=== PATIENT | female | born 1995 | race Caucasian/White ===

== ENCOUNTER 2023-06-10 05:16 | Outpatient (CLI) | payer OTHER, SELFPAY | END 2023-06-10 05:17 | disposition home or self-care (01) | LOC: AMB 06-12 20:13 | PROVIDERS: PCP Family Medicine; Visit Provider Internal Medicine | DX: R55 Syncope and collapse (principal); R19.7 Diarrhea, unspecified; S09.90XA Unspecified injury of head, initial encounter; W18.30XA Fall on same level, unspecified, initial encounter; Y92.009 Unspecified place in unspecified non-institutional (private) residence as the place of occurrence of the external cause | CPT/HCPCS: A0425; A0427 ==

== ENCOUNTER 2023-06-10 05:45 | Emergency (ER) | payer OTHER, MEDICAID, SELFPAY ==
[2023-06-10 05:51] VITALS: BP 115/66; PULSE 97; RESP 16; TEMP 36.6; O2SAT 99; BMI 38.0
--- NOTE | 2023-06-10 05:56 | CRLHL7_ITS ---
For Patients: As a result of the Cures Act, medical imaging exams and procedure reports are released immediately into your electronic medical record. You may view this report before your referring provider. If you have questions, please contact your health care provider. INDICATION: Injury COMPARISON: None TECHNIQUE: CT examination of the cervical spine is performed without contrast using spiral technique. Thin axial, sagittal and coronal reconstructions were made. Please note that all CT scans at this facility use dose modulation, iterative reconstruction, and/or weight-based dosing when appropriate to reduce radiation dose to as low as reasonably achievable. FINDINGS: : There is straightening which is usually due to muscle spasm, positioning or immobilization device. No significant arthritic changes. No acute fracture, dislocation or destructive process. The history indicates right facial and orbital region trauma. Please be aware that the orbits and the facial region were not formally studied on either this cervical spine study or the head CT. IMPRESSION: Straightening. No acute posttraumatic findings involving the cervical spine. Please review the comment regarding the right face and orbital region Please note that all CT scans at this facility use dose modulation, iterative reconstruction, and/or weight-based dosing when appropriate to reduce radiation dose to as low as reasonably achievable. Dictated by Víctor Angulo MD @ 06/10/2023 7:35:06 AM (Electronically Signed)
--- NOTE | 2023-06-10 05:56 | CRLHL7_ITS ---
For Patients: As a result of the Cures Act, medical imaging exams and procedure reports are released immediately into your electronic medical record. You may view this report before your referring provider. If you have questions, please contact your health care provider. INDICATION: Syncope. Injury. COMPARISON: None TECHNIQUE: CT examination of the head was performed as axial sections without intravenous contrast. Images were obtained from the vertex of the skull through the skull base. Please note that all CT scans at this facility use dose modulation, iterative reconstruction, and/or weight-based dosing when appropriate to reduce radiation dose to as low as reasonably achievable. FINDINGS: The brain shows no sign of mass lesion, mass effect, hemorrhage, or edema. The ventricles and sulci are normal in appearance for the patient`s age. The visualized portions of the orbits are normal in appearance. The osseous structures are normal in their appearance with no sign of abnormality in the skull base or calvarium. IMPRESSION: No acute intracranial posttraumatic findings. Please note that all CT scans at this facility use dose modulation, iterative reconstruction, and/or weight-based dosing when appropriate to reduce radiation dose to as low as reasonably achievable. Dictated by Víctor Angulo MD @ 06/10/2023 7:32:23 AM (Electronically Signed)
[2023-06-10 05:57] VITALS: O2SAT 99
--- NOTE | 2023-06-10 06:14 | ED_ITS ---
HPI - Syncope General Chief Complaint: Syncope/Fainted <Jean Franco MD - Last Filed: 06/10/23 07:50> Stated Complaint: Syncope <Jean Franco MD - Last Filed: 06/10/23 07:50> Time Seen by Provider: 06/10/23 05:54 <Jean Franco MD - Last Filed: 06/10/23 07:50> History of Present Illness HPI narrative: Patient is a 28-year-old woman who states she is not . She via having abdominal pain with nausea and diarrhea last night. She woke up in the middle night with the feeling that she is going to have diarrhea. She rested bathroom unfortunately felt lightheaded and woke up on the floor. She appears of struck the right oriental orthodox with a slight abrasion. She is able to get herself up and is apparently on injured. She now feels much better. She has no symptoms currently. No chest pain shortness a breath orthopnea no nausea no vomiting no fevers no chills. She states she is not at this time. She has had no similar symptoms previously. <Jean Franco MD - Last Filed: 06/10/23 07:50> Related Data Home Medications: Home Medications Medication Instructions Recorded Confirmed No Known Home Medications 06/10/23 06/10/23 <Jean Franco MD - Last Filed: 06/10/23 07:50> Allergies/Adverse Reactions: Allergies Allergy/AdvReac Type Severity Reaction Status Date / Time amoxicillin Allergy Unknown Verified 03/25/22 15:11 <Jean Franco MD - Last Filed: 06/10/23 07:50> Review of Systems Status of ROS: Reports: 10 or more systems reviewed and unremarkable except as noted in History and below <Jean Franco MD - Last Filed: 06/10/23 07:50> [facility] Medical History: Medical History IBS (irritable bowel syndrome) ?K58.9 - Irritable bowel syndrome without diarrhea (ICD-10) <Jean Franco MD - Last Filed: 06/10/23 07:50> Surgical History: Surgical History History of laparoscopic cholecystectomy ?Z90.49 - Acquired absence of other specified parts of digestive tract (ICD- 10) <Jean Franco MD - Last Filed: 06/10/23 07:50> Social History: Social History Smoking Status: Never smoker Second hand tobacco smoke exposure: No How often do you have a drink containing alcohol: never How often do you have six or more drinks on one occasion: Never AUDIT-C Alcohol total score: 0 Non-prescribed substance use: denies use <Jean Franco MD - Last Filed: 06/10/23 07:50> Exam Narrative: Exam Narrative: EXAM GENERAL: Patient appears comfortable and well. EYES: No scleral icterus. LYMPH: No supraclavicular or cervical lymphadenopathy. SKIN: Visible skin seen during exam normal or with benign process only. EXT: No dependent lower extremity pedal edema. HEART: Regular rate and rhythm with no murmurs, rubs, or gallops. LUNGS: Clear to auscultation bilaterally with no crackles or wheezes. ABD: Soft, non tender, non distended. PSYCH: Good eye contact, speech is not pressured. <Jean Franco MD - Last Filed: 06/10/23 07:50> Const: Vital Signs, click to edit/add: Vital Signs - 24 hr 06/10/23 05:51 06/10/23 05:57 06/10/23 06:43 Temperature 97.9 F Pulse Rate 99 Pulse Rate [Pulse Oximeter] 97 Respiratory Rate 16 18 Blood Pressure 129/75 Blood Pressure [Ri ght Upper Arm] 115/66 Pulse Oximetry 99 99 98 Oxygen Delivery Me thod Room Air <Jean Franco MD - Last Filed: 06/10/23 07:50> Vital Signs, click to edit/add: Vital Signs - 24 hr 06/10/23 05:51 06/10/23 05:57 06/10/23 06:43 Temperature 97.9 F Pulse Rate 99 Pulse Rate [Pulse Oximeter] 97 Respiratory Rate 16 18 Blood Pressure 129/75 Blood Pressure [Ri ght Upper Arm] 115/66 Pulse Oximetry 99 99 98 Oxygen Delivery Me thod Room Air <Silvio Wynn MD - Last Filed: 06/10/23 09:29> Course Course ED Course: Patient appears to be asymptomatic in her likely diagnosis is vasovagal syncope. I did send off D-dimer troponin CBC basic metabolic panel UA CT head and neck. EKG is ordered as well. Will follow up based on those results. Normal saline given for now. <Jean Franco MD - Last Filed: 06/10/23 07:50> Vital Signs Vital signs: Initial Vital Signs Temperature 97.9 F 06/10/23 05:51 Temperature Source Temporal Artery Scan 06/10/23 05:51 Pulse Rate 97 06/10/23 05:51 Respiratory Rate 16 06/10/23 05:51 Blood Pressure 115/66 06/10/23 05:51 Blood Pressure Mean 82 06/10/23 05:51 Blood Pressure Position Sitting 06/10/23 05:51 Pulse Oximetry 99 06/10/23 05:51 Oxygen Delivery Method Room Air 06/10/23 05:51 Vital Signs Temperature 97.9 F 06/10/23 05:51 Pulse Rate 97 06/10/23 05:51 Respiratory Rate 16 06/10/23 05:51 Blood Pressure 115/66 06/10/23 05:51 Pulse Oximetry 99 06/10/23 05:51 Oxygen Delivery Method Room Air 06/10/23 05:51 Temperature 97.9 F 06/10/23 05:51 Pulse Rate 99 06/10/23 06:43 Respiratory Rate 18 06/10/23 06:43 Blood Pressure 129/75 06/10/23 06:43 Pulse Oximetry 98 06/10/23 06:43 Oxygen Delivery Method Room Air 06/10/23 05:51 <Jean Franco MD - Last Filed: 06/10/23 07:50> Initial Vital Signs Temperature 97.9 F 06/10/23 05:51 Temperature Source Temporal Artery Scan 06/10/23 05:51 Pulse Rate 97 06/10/23 05:51 Respiratory Rate 16 06/10/23 05:51 Blood Pressure 115/66 06/10/23 05:51 Blood Pressure Mean 82 06/10/23 05:51 Blood Pressure Position Sitting 06/10/23 05:51 Pulse Oximetry 99 06/10/23 05:51 Oxygen Delivery Method Room Air 06/10/23 05:51 Vital Signs Temperature 97.9 F 06/10/23 05:51 Pulse Rate 97 06/10/23 05:51 Respiratory Rate 16 06/10/23 05:51 Blood Pressure 115/66 06/10/23 05:51 Pulse Oximetry 99 06/10/23 05:51 Oxygen Delivery Method Room Air 06/10/23 05:51 Temperature 97.9 F 06/10/23 05:51 Pulse Rate 99 06/10/23 06:43 Respiratory Rate 18 06/10/23 06:43 Blood Pressure 129/75 06/10/23 06:43 Pulse Oximetry 98 06/10/23 06:43 Oxygen Delivery Method Room Air 06/10/23 05:51 <Silvio Wynn MD - Last Filed: 06/10/23 09:29> Medications Administered Medications: Discontinued Medications Generic Name Dose Route Start Last Admin Trade Name Freq PRN Reason Stop Dose Admin Sodium Chloride 1,000 mls @ 1,000 mls/hr 06/10/23 06:16 06/10/23 08:30 0.9 % Sodium Chloride 1000 Ml IV 06/10/23 07:15 Infused .Q1H YARI Infusion <Jean Franco MD - Last Filed: 06/10/23 07:50> Discontinued Medications Generic Name Dose Route Start Last Admin Trade Name Freq PRN Reason Stop Dose Admin Sodium Chloride 1,000 mls @ 1,000 mls/hr 06/10/23 06:16 06/10/23 08:30 0.9 % Sodium Chloride 1000 Ml IV 06/10/23 07:15 Infused .Q1H YARI Infusion <Silvio Wynn MD - Last Filed: 06/10/23 09:29> MDM - Syncope MDM Narrative Medical decision making narrative: Patient is 28-year-old woman who had a syncopal episode after waking with set stomach overnight. Exam is unremarkable with the exception of mild contusion to the right side of her forehead. Laboratory studies are unremarkable with exception of elevated D-dimer. We will be proceeding with CT of the chest PE protocol which will be followed up by my colleague. <Jean Franco MD - Last Filed: 06/10/23 07:50> Patient is 28-year-old woman who had a syncopal episode after waking with set stomach overnight. Exam is unremarkable with the exception of mild contusion to the right side of her forehead. Laboratory studies are unremarkable with exception of elevated D-dimer. We will be proceeding with CT of the chest PE protocol which will be followed up by my colleague. CT of the chest with PE protocol returns negative for pulmonary embolism. The patient did receive IV fluids and states that she is feeling much better. She is reassured with exam and lab results. She is okay to be discharged home. <Silvio Wynn MD - Last Filed: 06/10/23 09:29> Lab Data Labs: Lab Results 06/10/23 06/10/23 06/10/23 Range/Units 06:00 06:10 06:40 WBC 9.11 (4.50-11.00) K/uL RBC 4.29 (4.00-5.20) m/uL Hgb 12.7 (12.0-16.0) gm/dL Hct 38.0 (33.0-51.0) % MCV 89 (80-100) fL MCH 30 (26-34) pg MCHC 33 (32-36) gm/dL RDW Coeff of Junie 12.2 (11.5-15.5) % Plt Count 237 (140-440) K/uL Neut % (Auto) 81.9 H (42.0-72.0) % Lymph % (Auto) 10.5 L (20-44) % [place] % (Auto) 5.3 (0.0-11.0) % Eos % (Auto) 1.3 (0.0-7.0) % Baso % (Auto) 0.2 (0.0-3.0) % Neut # (Auto) 7.50 H (1.7-7.0) K/uL Lymph # (Auto) 1.00 (0.90-2.90) K/uL [place] # (Auto) 0.50 (0.00-0.90) K/UL Eos # (Auto) 0.12 (0.00-0.50) K/uL Baso # (Auto) 0.02 (0.00-0.30) K/uL Abs Immat Gran (auto) 0.07 (0.00-0.30) K/uL Imm/Tot Granulo (auto) 0.8 % D-Dimer Quant (PE/DVT) 1.09 H (0.00-0.50) ug/ml Sodium 138 (135-149) mmol/L Potassium 3.5 L (3.6-5.1) mmol/L Chloride 105 (96-114) mmol/L Carbon Dioxide 23 (20-32) mmol/L Anion Gap 10 (7-15) mEq/L BUN 18 (5-24) mg/dL Creatinine 0.6 (0.5-1.5) mg/dL Estimated Creat Clear 143.33 Estimated GFR 127 ml/min Glucose 119 H (60-115) mg/dL Calcium 7.8 L (8.4-10.6) mg/dL Troponin I < 0.01 L (0.01-0.04) ng/mL Urine Color Yellow (Yellow) Urine Appearance Slightly Cloudy A (Clear) Urine pH 6.5 (5.0-8.5) Ur Specific [place] 1.025 (1.000-1.030) Urine Protein 2+ A (Negative) Urine Glucose (UA) Negative (Negative) Urine Ketones Negative (Negative) Urine Blood Negative (Negative) Urine Nitrite Negative (Negative) Urine Bilirubin Negative (Negative) Urine Urobilinogen 0.2 (0.2-1.0) Ur Leukocyte Esterase Negative (Negative) Urine RBC 0-2 (0-2) Urine WBC 5-10 A (0-5) Ur Squamous Epith Cells Moderate A (None-Few) Urine Bacteria Few A (None) SARS-CoV-2 (PCR) Negative SARS-CoV-2 (Negative) Influenza Type A (PCR) Negative PCR FLU A (Negative) Influenza Type B (PCR) Negative PCR FLU B (Negative) RSV (PCR) Negative PCR RSV (Negative) <Jean Franco MD - Last Filed: 06/10/23 07:50> Lab Results 06/10/23 06/10/23 06/10/23 Range/Units 06:00 06:10 06:40 WBC 9.11 (4.50-11.00) K/uL RBC 4.29 (4.00-5.20) m/uL Hgb 12.7 (12.0-16.0) gm/dL Hct 38.0 (33.0-51.0) % MCV 89 (80-100) fL MCH 30 (26-34) pg MCHC 33 (32-36) gm/dL RDW Coeff of Junie 12.2 (11.5-15.5) % Plt Count 237 (140-440) K/uL Neut % (Auto) 81.9 H (42.0-72.0) % Lymph % (Auto) 10.5 L (20-44) % [place] % (Auto) 5.3 (0.0-11.0) % Eos % (Auto) 1.3 (0.0-7.0) % Baso % (Auto) 0.2 (0.0-3.0) % Neut # (Auto) 7.50 H (1.7-7.0) K/uL Lymph # (Auto) 1.00 (0.90-2.90) K/uL [place] # (Auto) 0.50 (0.00-0.90) K/UL Eos # (Auto) 0.12 (0.00-0.50) K/uL Baso # (Auto) 0.02 (0.00-0.30) K/uL Abs Immat Gran (auto) 0.07 (0.00-0.30) K/uL Imm/Tot Granulo (auto) 0.8 % D-Dimer Quant (PE/DVT) 1.09 H (0.00-0.50) ug/ml Sodium 138 (135-149) mmol/L Potassium 3.5 L (3.6-5.1) mmol/L Chloride 105 (96-114) mmol/L Carbon Dioxide 23 (20-32) mmol/L Anion Gap 10 (7-15) mEq/L BUN 18 (5-24) mg/dL Creatinine 0.6 (0.5-1.5) mg/dL Estimated Creat Clear 143.33 Estimated GFR 127 ml/min Glucose 119 H (60-115) mg/dL Calcium 7.8 L (8.4-10.6) mg/dL Troponin I < 0.01 L (0.01-0.04) ng/mL Urine Color Yellow (Yellow) Urine Appearance Slightly Cloudy A (Clear) Urine pH 6.5 (5.0-8.5) Ur Specific [place] 1.025 (1.000-1.030) Urine Protein 2+ A (Negative) Urine Glucose (UA) Negative (Negative) Urine Ketones Negative (Negative) Urine Blood Negative (Negative) Urine Nitrite Negative (Negative) Urine Bilirubin Negative (Negative) Urine Urobilinogen 0.2 (0.2-1.0) Ur Leukocyte Esterase Negative (Negative) Urine RBC 0-2 (0-2) Urine WBC 5-10 A (0-5) Ur Squamous Epith Cells Moderate A (None-Few) Urine Bacteria Few A (None) SARS-CoV-2 (PCR) Negative SARS-CoV-2 (Negative) Influenza Type A (PCR) Negative PCR FLU A (Negative) Influenza Type B (PCR) Negative PCR FLU B (Negative) RSV (PCR) Negative PCR RSV (Negative) <Silvio Wynn MD - Last Filed: 06/10/23 09:29> Discharge Plan Discharge Clinical Impression: Syncope <Jean Franco MD - Last Filed: 06/10/23 07:50> Patient Disposition: Home, Self-Care <Jean Franco MD - Last Filed: 06/10/23 07:50> Condition: Stable <Jean Franco MD - Last Filed: 06/10/23 07:50> Instructions: Syncope (ED) <Jean Franco MD - Last Filed: 06/10/23 07:50> Additional Instructions: Rest Fluids Follow-up as needed <Jean Franco MD - Last Filed: 06/10/23 07:50> Activity Level: No Restrictions <Jean Franco MD - Last Filed: 06/10/23 07:50> No Restrictions <Silvio Wynn MD - Last Filed: 06/10/23 09:29> Discharge Diet: Regular <Jean Franco MD - Last Filed: 06/10/23 07:50> Regular <Silvio Wynn MD - Last Filed: 06/10/23 09:29> Prescriptions: No Action No Known Home Medications <Jean Franco MD - Last Filed: 06/10/23 07:50> Follow Up/Referrals: Anderson Price MD [Referring] - <Jean Franco MD - Last Filed: 06/10/23 07:50> Stand Alone Forms: [facility] Info Instructions <Jean Franco MD - Last Filed: 06/10/23 07:50>
[2023-06-10] MEDS: 0.9 % SODIUM CHLORIDE 1000 ml 1,000 ML IV (06:17)
[2023-06-10 06:19] LABS: Basophils Absolute Auto 0.02 K/uL (0.00-0.30); Basophils Percent Auto 0.2 % (0.0-3.0); Eosinophils Absolute Auto 0.12 K/uL (0.00-0.50); Eosinophils Percent Auto 1.3 % (0.0-7.0); Hemoglobin* 12.7 gm/dL (12.0-16.0); Immature Granulocytes Abs Auto 0.07 K/uL (0.00-0.30); Immature Granulocytes Pct Auto 0.8 %; Lymphocytes Percent Auto 10.5 % (20-44); Mean Corpuscular HGB Conc 33 gm/dL (32-36); Mean Corpuscular Hemoglobin 30 pg (26-34); Mean Corpuscular Volume 89 fL (80-100); Monocytes Percent Auto 5.3 % (0.0-11.0); Neutrophils Percent Auto 81.9 % (42.0-72.0); Platelet Count* 237 K/uL (140-440); RDW Coefficient of Variation % 12.2 % (11.5-15.5); Red Blood Count 4.29 m/uL (4.00-5.20); White Blood Count* 9.11 K/uL (4.50-11.00)
[2023-06-10 06:21] LABS: Slide Review Reflex No
[2023-06-10 06:34] LABS: Chloride* 105 mmol/L (96-114)
[2023-06-10 06:35] LABS: Potassium* 3.5 mmol/L (3.6-5.1); Sodium* 138 mmol/L (135-149)
[2023-06-10 06:37] LABS: Creatinine* 0.6 mg/dL (0.5-1.5); Est. Creatinine Clearance* 143.33; Estimated Glomerular Filt Rate 127 ml/min
[2023-06-10 06:38] LABS: Anion Gap 10 mEq/L (7-15); Blood Urea Nitrogen* 18 mg/dL (5-24); Calcium* 7.8 mg/dL (8.4-10.6); Carbon Dioxide* 23 mmol/L (20-32); Glucose* 119 mg/dL (60-115)
[2023-06-10 06:40] LABS: PCR FLU A Negative PCR FLU A (Negative); PCR FLU B Negative PCR FLU B (Negative); PCR RSV Negative PCR RSV (Negative)
[2023-06-10 06:43] VITALS: BP 129/75; PULSE 99; RESP 18; O2SAT 98
[2023-06-10 06:43] LABS: SARS PCR* Negative SARS-CoV-2 (Negative)
[2023-06-10 06:44] LABS: D Dimer Quantitative* 1.09 ug/ml (0.00-0.50)
[2023-06-10 06:48] LABS: Appearance Urine Slightly Cloudy (Clear); Bilirubin Urine Negative (Negative); Blood Urine Negative (Negative); Color Urine Yellow (Yellow); Glucose Urine Negative (Negative); Ketones Urine Negative (Negative); Leukocyte Esterase Urine Negative (Negative); Nitrite Urine Negative (Negative); Protein Urine 2+ (Negative); Specific Gravity Urine 1.025 (1.000-1.030); Urobilinogen Urine 0.2 (0.2-1.0); pH Urine 6.5 (5.0-8.5)
[2023-06-10 06:51] LABS: Troponin I* < 0.01 ng/mL (0.01-0.04)
[2023-06-10 06:59] LABS: Bacteria Urine Few; RBC Urine 0-2 (0-2); Squamous Epithelial Cell Urine Moderate (None-Few)
--- NOTE | 2023-06-10 07:02 | CRLHL7_ITS ---
For Patients: As a result of the Century Cures Act, medical imaging exams and procedure reports are released immediately into your electronic medical record. You may view this report before your referring provider. If you have questions, please contact your health care provider. INDICATION: Elevated D-dimer COMPARISON: None TECHNIQUE: : CT examination of the chest was performed with the uneventful intravenous administration of 95 cc of Isovue 370 while thin axial sections were obtained from above the apices of the lungs to the lung bases. Please note that all CT scans at this facility use dose modulation, iterative reconstruction, and/or weight-based dosing when appropriate to reduce radiation dose to as low as reasonably achievable. FINDINGS: : HEART and MEDIASTINUM: The heart size is normal. There is no mediastinal or hilar adenopathy or mass. There is no pericardial effusion. PULMONARY ARTERIAL CIRCULATION: There is no visible intraluminal filling defect to suggest pulmonary embolus. LUNGS: The lungs show no focal consolidation or mass. The airways appear normal. PLEURAL SPACES: There is no pleural effusion, pneumothorax or pleural based mass. VISUALIZED UPPER ABDOMEN: Fatty infiltrated liver. Surgically absent gallbladder. Otherwise, the limited visualized upper abdominal structures appear normal. OSSEOUS STRUCTURES: Age-appropriate appearance. No acute fracture or destructive process. TUBES and LINES: None. IMPRESSION: No findings of pulmonary embolus. Please note that all CT scans at this facility use dose modulation, iterative reconstruction, and/or weight-based dosing when appropriate to reduce radiation dose to as low as reasonably achievable. Dictated by Víctor Angulo MD @ 06/10/2023 8:52:06 AM (Electronically Signed)
--- NOTE | 2023-06-10 08:42 | ED.NURSE ---
patient was vomiting and had an accident up to the bathroom to clean up and offered some nausea and Imodium to patient. had NVD at home prior to coming into ED.
[2023-06-10 08:50] VITALS: BP 115/81; PULSE 68; RESP 16; O2SAT 98
== END 2023-06-10 09:47 | disposition home or self-care (01) ==
PROVIDERS: Emergency Provider Internal Medicine; PCP Family Medicine
DX: R55 Syncope and collapse (principal)
CPT/HCPCS: 36415; 70450; 71275; 72125; 80048; 81003; 81015; 84484; 85025; 85379; 87086; 87631; 93005; 94761; 99283; 99284; 99285; J7030; Q9967